=== PATIENT | female | born 1990 | race American Indian/Alaskan Native ===

== ENCOUNTER 2018-08-09 07:28 | Emergency (ER) | payer OTHER, MEDICAID ==
--- NOTE | 2018-08-09 08:00 | Emergency Department Report ---
ED Rash HPI - HPI Chief Complaint: Extremity Problem,Nontraumatic Stated Complaint: R HAND PAIN/SWOLLEN Time Seen by Provider: 08/09/18 07:56 Duration: Today Rash Symptoms: Yes Itching, No Facial Swelling, No Tongue/Oral Swelling, No Choking Sensation, No Wheezing/Dyspnea, No Peeling, No Blistering, No Fever, No Lightheaded, No Malaise, No Myalgias Severity: mild Other History: Mr. Hurd presents with infected skin bite of her right hand. She awaken with itching and swelling at the right thumb region. mild symptoms symptoms. . She is afraid of a spider bite because her mother home has black spiders. ED Review of Systems ROS: Stated complaint: R HAND PAIN/SWOLLEN Other details as noted in HPI Constitutional: denies: fever, malaise Skin: rash, lesions ED Past Medical Hx - Past Medical History Additional medical history: Vaginal delivery 2012 - Social History Smoking Status: Never Smoker Substance Use Type: Alcohol - Medications Home Medications: Home Medications Medication Instructions Recorded Confirmed Last Taken Type metroNIDAZOLE [Flagyl] 500 mg PO BID #14 tablet 10/05/13 Unknown Rx Amoxicillin/K Clav Tab [Augmentin 1 tab PO Q12HR #10 tab 11/27/15 Unknown Rx 875 mg] Fluconazole [Diflucan TAB] 150 mg PO ONCE #2 tablet 11/27/15 Unknown Rx metroNIDAZOLE [Flagyl TAB] 500 mg PO Q12HR #14 tab 11/27/15 Unknown Rx Nitrofurantoin [place]/M-Cryst 100 mg PO Q12HR #14 capsule 02/12/16 Unknown Rx [Macrobid CAP] metroNIDAZOLE [Flagyl] 500 mg PO Q12HR #14 tab 02/12/16 Unknown Rx Sulfamethoxazole/Trimethoprim 1 each PO BID 5 Days #10 tablet 08/09/18 Unknown Rx [Bactrim DS TAB] Rash Exam - Exam General: Vital signs noted. No distress. Alert and acting appropriately. HEENT: No Periorbital Edema, No Conjuctival Injection, No Chemosis, No Perioral Edema, No Tongue Edema, No Uvular Edema, No Compromised Airway, No Drooling Lungs: No Wheezes, No Retractions Skin: No Other (right thenar eminence mild swelling small papule) ED Medical Decision Making - Medical Decision Making mild infected skin bite, swelling encompasses 3 cm of hand: rx: bactrim Critical care attestation.: If time is entered above; I have spent that time in minutes in the direct care of this critically ill patient, excluding procedure time. ED Disposition Clinical Impression: Infected insect bite Disposition: DC-01 TO HOME OR SELFCARE Is pt being admited?: No Does the pt Need Aspirin: No Condition: Stable Instructions: Insect Bite or Sting (ED) Prescriptions: Sulfamethoxazole/Trimethoprim [Bactrim DS TAB] 1 each PO BID 5 Days #10 tablet
== END 2018-08-09 08:11 | disposition home or self-care (01) ==
LOC: ED 07:28
DX: S60.561A Insect bite (nonvenomous) of right hand, initial encounter (principal); L03.113 Cellulitis of right upper limb; W57.XXXA Bitten or stung by nonvenomous insect and other nonvenomous arthropods, initial encounter; Y93.89 Activity, other specified; Y92.89 Other specified places as the place of occurrence of the external cause; Y99.8 Other external cause status
CPT/HCPCS: 99281

== ENCOUNTER 2018-09-08 19:10 | Emergency (ER) | payer OTHER, MEDICAID ==
--- NOTE | 2018-09-08 20:25 | Event Note ---
ED Screening Note Date of service: 09/08/18 Time: 20:22 ED Screening Note: 27 y/o female comes in for right foot pain after a wheelchair ran over time 4 days ago. Ambulating without difficulty. This initial assessment/diagnostic orders/clinical plan/treatment(s) is/are subject to change based on patients health status, clinical progression and re- assessment by fellow clinical providers in the ED. Further treatment and workup at subsequent clinical providers discretion. Patient/guardian urged not to elope from the ED as their condition may be serious if not clinically assessed and managed. Initial orders include:
[2018-09-08 21:47] LABS: HCG Qualitative,Urine Negative (Negative)
--- NOTE | 2018-09-08 23:38 | XRay Report ---
PROCEDURE: XR FOOT 2V RT TECHNIQUE: 2 views of the right foot HISTORY: right foot pain from trauma COMPARISONS: No priors FINDINGS: There is no evidence of acute fracture or dislocation. Alignment is anatomic. No radiopaque foreign bodies. IMPRESSION: No evidence of acute fracture or dislocation of the right foot.. This document is electronically signed by Giovanny Sommer MD., September 08 2018 11:36:37 PM ET
--- NOTE | 2018-09-09 00:35 | Emergency Department Report ---
ED General Adult HPI - General Chief complaint: Dental/Oral Stated complaint: RIGHT FOOT PAIN/TOOTHACHE Time Seen by Provider: 09/09/18 00:27 Source: patient Mode of arrival: Ambulatory Limitations: No Limitations - History of Present Illness Initial comments: pt is a 27 y/o female who comes in for right foot pain after a wheelchair ran over time 4 days ago. dental pain ,chronic Ambulating without difficulty. Onset/Timin -: days(s) Location: left, lower extremity Radiation: non-radiation Severity scale (0 -10): 4 Quality: aching Consistency: constant Improves with: none Worsens with: none Associated Symptoms: denies other symptoms Treatments Prior to Arrival: none - Related Data Previous Rx's Medication Instructions Recorded Last Taken Type metroNIDAZOLE [Flagyl] 500 mg PO BID #14 tablet 10/05/13 Unknown Rx Amoxicillin/K Clav Tab [Augmentin 1 tab PO Q12HR #10 tab 11/27/15 Unknown Rx 875 mg] Fluconazole [Diflucan TAB] 150 mg PO ONCE #2 tablet 11/27/15 Unknown Rx metroNIDAZOLE [Flagyl TAB] 500 mg PO Q12HR #14 tab 11/27/15 Unknown Rx Nitrofurantoin [place]/M-Cryst 100 mg PO Q12HR #14 capsule 02/12/16 Unknown Rx [Macrobid CAP] metroNIDAZOLE [Flagyl] 500 mg PO Q12HR #14 tab 02/12/16 Unknown Rx Sulfamethoxazole/Trimethoprim 1 each PO BID 5 Days #10 tablet 08/09/18 Unknown Rx [Bactrim DS TAB] Amoxicillin [Trimox CAP] 500 mg PO Q8H 10 Days #30 capsule 09/09/18 Unknown Rx Naproxen [Naprosyn] 500 mg PO BID PRN #30 tablet 09/09/18 Unknown Rx Allergies Allergy/AdvReac Type Severity Reaction Status Date / Time No Known Allergies Allergy Verified 08/09/18 07:30 ED Review of Systems ROS: Stated complaint: RIGHT FOOT PAIN/TOOTHACHE Other details as noted in HPI Constitutional: denies: chills, fever Eyes: denies: eye pain, eye discharge, vision change ENT: dental pain, congestion. denies: ear pain, throat pain Respiratory: denies: cough, shortness of breath, wheezing Cardiovascular: denies: chest pain, palpitations Endocrine: no symptoms reported Gastrointestinal: denies: abdominal pain, nausea, diarrhea Genitourinary: denies: urgency, dysuria, discharge Musculoskeletal: other (foot pain ). denies: back pain, joint swelling, arthralgia Skin: denies: rash, lesions Neurological: denies: headache, weakness, paresthesias Psychiatric: denies: anxiety, depression Hematological/Lymphatic: denies: easy bleeding, easy bruising ED Past Medical Hx - Past Medical History Previous Medical History?: Yes Additional medical history: Vaginal delivery 2012, High Cholesterol, Vitamin D defiency - Surgical History Past Surgical History?: Yes Additional Surgical History: C section - Social History Smoking Status: Never Smoker Substance Use Type: None - Medications Home Medications: Home Medications Medication Instructions Recorded Confirmed Last Taken Type metroNIDAZOLE [Flagyl] 500 mg PO BID #14 tablet 10/05/13 Unknown Rx Amoxicillin/K Clav Tab [Augmentin 1 tab PO Q12HR #10 tab 11/27/15 Unknown Rx 875 mg] Fluconazole [Diflucan TAB] 150 mg PO ONCE #2 tablet 11/27/15 Unknown Rx metroNIDAZOLE [Flagyl TAB] 500 mg PO Q12HR #14 tab 11/27/15 Unknown Rx Nitrofurantoin [place]/M-Cryst 100 mg PO Q12HR #14 capsule 02/12/16 Unknown Rx [Macrobid CAP] metroNIDAZOLE [Flagyl] 500 mg PO Q12HR #14 tab 02/12/16 Unknown Rx Sulfamethoxazole/Trimethoprim 1 each PO BID 5 Days #10 tablet 08/09/18 Unknown Rx [Bactrim DS TAB] Amoxicillin [Trimox CAP] 500 mg PO Q8H 10 Days #30 capsule 09/09/18 Unknown Rx Naproxen [Naprosyn] 500 mg PO BID PRN #30 tablet 09/09/18 Unknown Rx ED Physical Exam - General Limitations: No Limitations General appearance: alert, in no apparent distress - Head Head exam: Present: atraumatic, normocephalic - Eye Eye exam: Present: normal appearance, PERRL, EOMI Pupils: Present: normal accommodation - ENT ENT exam: Present: mucous membranes moist - Neck Neck exam: Present: normal inspection, full ROM. Absent: tenderness, lymphadenopathy - Respiratory Respiratory exam: Present: normal lung sounds bilaterally. Absent: respiratory distress, chest wall tenderness - Cardiovascular Cardiovascular Exam: Present: regular rate, normal rhythm. Absent: systolic murmur, diastolic murmur, rubs, gallop - GI/Abdominal GI/Abdominal exam: Present: soft, normal bowel sounds. Absent: distended, tenderness, guarding, rebound, rigid, bruit, hernia - Rectal Rectal exam: Present: deferred - Extremities Exam Extremities exam: Present: normal inspection, tenderness (left lateral foot ), normal capillary refill. Absent: pedal edema, joint swelling, calf tenderness - Expanded Lower Extremity Exam Left Foot/Toe exam: Present: full ROM, tenderness, tenderness at base of 5th metatarsal. Absent: swelling, abrasion, laceration, ecchymosis, deformity, crepidus, dislocation, erythema, amputation, puncture wound, foreign body, ca lcaneal tenderness, nail avulsion, subungual hematoma Neuro vascular tendon exam: Absent: pulse deficit, motor deficit, sensory deficit, tendon deficit Gait: Positive: observed and limited by pain - Back Exam Back exam: Present: normal inspection, tenderness. Absent: CVA tenderness (R), CVA tenderness (L), muscle spasm, paraspinal tenderness, vertebral tenderness, rash noted - Neurological Exam Neurological exam: Present: alert, oriented X3, CN II-XII intact, normal gait, reflexes normal. Absent: motor sensory deficit - Psychiatric Psychiatric exam: Present: normal affect, normal mood - Skin Skin exam: Present: warm, dry, intact, normal color. Absent: rash ED Course Vital Signs 09/08/18 19:38 Temperature 98.8 F Pulse Rate 75 Respiratory 20 Rate Blood Pressure 126/67 O2 Sat by Pulse 100 Oximetry ED Medical Decision Making - Radiology Data Radiology results: report reviewed, image reviewed Ordering Physician: CHEYENNE BUCK Date of Service: 09/08/18 Procedure(s): XR foot 2V RT Accession Number(s): [id number] cc: CHEYENNE BUCK Fluoro Time In Minutes: PROCEDURE: XR FOOT 2V RT TECHNIQUE: 2 views of the right foot HISTORY: right foot pain from trauma COMPARISONS: No priors FINDINGS: There is no evidence of acute fracture or dislocation. Alignment is anatomic. No radiopaque foreign bodies. IMPRESSION: No evidence of acute fracture or dislocation of the right foot.. This document is electronically signed by Giovanny Sommer MD., September 08 2018 11:36:37 PM ET Transcribed By: MARY Dictated By: GIOVANNY SOMMER MD Electronically Authenticated By: GIOVANNY SOMMER MD Signed Date/Time: 09/08/182337 DD/ 30 - Medical Decision Making xray normal no fracture no soft tissue abnormality, no bruising no abnormality, distal pulses intact subjective pain to ambulation, dental pain is chronic to number 28 no focal abscess no gum or facial swelling no throat or ear pain , plan; nsaids, rice therapy follow up with pcp , follow up with dentist, pt given referral to same pt for dc to home in stable condition at this time. Critical care attestation.: If time is entered above; I have spent that time in minutes in the direct care of this critically ill patient, excluding procedure time. ED Disposition Clinical Impression: Toothache Foot sprain Qualifiers: Encounter type: initial encounter Laterality: right Qualified Code(s): S93.601A - Unspecified sprain of right foot, initial encounter Disposition: DC-01 TO HOME OR SELFCARE Is pt being admited?: No Does the pt Need Aspirin: No Condition: Stable Instructions: Dental Caries (ED), Foot Sprain (ED) Prescriptions: Naproxen [Naprosyn] 500 mg PO BID PRN #30 tablet PRN Reason: pain Amoxicillin [Trimox CAP] 500 mg PO Q8H 10 Days #30 capsule Referrals: [facility] [Outside] - 3-5 Days Forms: Work/School Release Form(ED) Time of Disposition: 00:44
[2018-09-09 01:20] VITALS: BP 129/83
== END 2018-09-09 01:21 | disposition home or self-care (01) ==
LOC: ED 19:10
DX: S93.601A Unspecified sprain of right foot, initial encounter (principal); K08.89 Other specified disorders of teeth and supporting structures; E78.00 Pure hypercholesterolemia, unspecified; Z79.899 Other long term (current) drug therapy; W05.0XXA Fall from non-moving wheelchair, initial encounter; Y93.89 Activity, other specified; Y92.89 Other specified places as the place of occurrence of the external cause; Y99.8 Other external cause status
CPT/HCPCS: 81025; 99284

== ENCOUNTER 2018-10-07 12:06 | Emergency (ER) | payer OTHER, MEDICAID ==
--- NOTE | 2018-10-07 12:17 | Emergency Department Report ---
Blank Doc - Documentation Documentation: This is a 27-year-old female that presents with n/v/d and abdominal pain. This initial assessment/diagnostic orders/clinical plan/treatment(s) is/are subject to change based on patient's health status, clinical progression and re- assessment by fellow clinical providers in the ED. Further treatment and workup at subsequent clinical providers discretion. Patient/guardians urged not to elope from the ED as their condition may be serious if not clinically assessed and managed. Initial orders include: 1- Patient sent to [facility] for further evaluation and treatment 2- labs 3- UA
[2018-10-07 12:21] VITALS: BP 125/67
--- NOTE | 2018-10-07 12:46 | Emergency Department Report ---
ED Abdominal Pain HPI - General Chief Complaint: Nausea/Vomiting/Diarrhea Stated Complaint: STOMACH/L FINGER PAIN/VOMITING Time Seen by Provider: 10/07/18 12:16 Source: patient Mode of arrival: Ambulatory Limitations: No Limitations - History of Present Illness Initial Comments: Ms. Hurd is a 27-year-old female presents with right lower quadrant pain nausea vomiting diarrhea for the last 4 days. Recently was evaluated at outside emergency department at another hospital. She was prescribed naproxen and amoxicillin for tooth infection. Mild sharp pain. Intermittent in the right lower quadrant. Last menstrual period September 15. MD Complaint: abdominal pain -: Gradual, days(s) (4) Location: RLQ Severity: mild Quality: cramping Consistency: intermittent Improves With: nothing Worsens With: nothing Associated Symptoms: nausea, vomiting, diarrhea - Related Data Previous Rx's Medication Instructions Recorded Last Taken Type metroNIDAZOLE [Flagyl] 500 mg PO BID #14 tablet 10/05/13 Unknown Rx Amoxicillin/K Clav Tab [Augmentin 1 tab PO Q12HR #10 tab 11/27/15 Unknown Rx 875 mg] Fluconazole [Diflucan TAB] 150 mg PO ONCE #2 tablet 11/27/15 Unknown Rx metroNIDAZOLE [Flagyl TAB] 500 mg PO Q12HR #14 tab 11/27/15 Unknown Rx Nitrofurantoin [place]/M-Cryst 100 mg PO Q12HR #14 capsule 02/12/16 Unknown Rx [Macrobid CAP] metroNIDAZOLE [Flagyl] 500 mg PO Q12HR #14 tab 02/12/16 Unknown Rx Sulfamethoxazole/Trimethoprim 1 each PO BID 5 Days #10 tablet 08/09/18 Unknown Rx [Bactrim DS TAB] Amoxicillin [Trimox CAP] 500 mg PO Q8H 10 Days #30 capsule 09/09/18 Unknown Rx Naproxen [Naprosyn] 500 mg PO BID PRN #30 tablet 09/09/18 Unknown Rx Allergies Allergy/AdvReac Type Severity Reaction Status Date / Time No Known Allergies Allergy Verified 10/07/18 12:08 ED Review of Systems ROS: Stated complaint: STOMACH/L FINGER PAIN/VOMITING Other details as noted in HPI Comment: All other systems reviewed and negative Constitutional: denies: fever, malaise Gastrointestinal: abdominal pain, nausea, vomiting, diarrhea Genitourinary: denies: frequency, hematuria, discharge, abnormal menses, dyspareunia ED Past Medical Hx - Past Medical History Previous Medical History?: Yes Additional medical history: Vaginal delivery 2012, High Cholesterol, Vitamin D defiency - Surgical History Past Surgical History?: Yes Additional Surgical History: C section - Social History Smoking Status: Never Smoker Substance Use Type: Alcohol - Medications Home Medications: Home Medications Medication Instructions Recorded Confirmed Last Taken Type metroNIDAZOLE [Flagyl] 500 mg PO BID #14 tablet 10/05/13 Unknown Rx Amoxicillin/K Clav Tab [Augmentin 1 tab PO Q12HR #10 tab 11/27/15 Unknown Rx 875 mg] Fluconazole [Diflucan TAB] 150 mg PO ONCE #2 tablet 11/27/15 Unknown Rx metroNIDAZOLE [Flagyl TAB] 500 mg PO Q12HR #14 tab 11/27/15 Unknown Rx Nitrofurantoin [place]/M-Cryst 100 mg PO Q12HR #14 capsule 02/12/16 Unknown Rx [Macrobid CAP] metroNIDAZOLE [Flagyl] 500 mg PO Q12HR #14 tab 02/12/16 Unknown Rx Sulfamethoxazole/Trimethoprim 1 each PO BID 5 Days #10 tablet 08/09/18 Unknown Rx [Bactrim DS TAB] Amoxicillin [Trimox CAP] 500 mg PO Q8H 10 Days #30 capsule 09/09/18 Unknown Rx Naproxen [Naprosyn] 500 mg PO BID PRN #30 tablet 09/09/18 Unknown Rx ED Physical Exam - General Limitations: No Limitations General appearance: alert, in no apparent distress - Head Head exam: Present: atraumatic, normocephalic - Eye Eye exam: Present: normal appearance - ENT ENT exam: Present: mucous membranes moist - Neck Neck exam: Present: normal inspection, full ROM - Respiratory Respiratory exam: Present: normal lung sounds bilaterally. Absent: respiratory distress, wheezes, rales - Cardiovascular Cardiovascular Exam: Present: regular rate, normal rhythm, normal heart sounds. Absent: systolic murmur, diastolic murmur, rubs, gallop - GI/Abdominal GI/Abdominal exam: Present: soft, normal bowel sounds. Absent: distended, tenderness, guarding, rebound - Extremities Exam Extremities exam: Present: normal inspection - Back Exam Back exam: Present: normal inspection - Neurological Exam Neurological exam: Present: alert, oriented X3 - Psychiatric Psychiatric exam: Present: normal affect, normal mood - Skin Skin exam: Present: warm, dry, intact, normal color. Absent: rash ED Course Vital Signs 10/07/18 12:16 Temperature 98.4 F Pulse Rate 77 Respiratory 18 Rate Blood Pressure 125/67 O2 Sat by Pulse 100 Oximetry ED Medical Decision Making - Medical Decision Making Ms. Hurd is a [id number] female who presents with nausea vomiting diarrhea right lower quadrant pain. I suspect that amoxicillin is causing the diarrhea. No signs of peritonitis. No tenderness upon palpation. Normal vital signs. I do not suspect appendicitis or ovarian torsion or ectopic . She was given return precautions. She understands return to the emergency department if pain becomes worse or if she develops new symptoms. At this time she appears quite well comfortable in no distress. Critical care attestation.: If time is entered above; I have spent that time in minutes in the direct care of this critically ill patient, excluding procedure time. ED Disposition Clinical Impression: Abdominal pain, Nausea vomiting and diarrhea Disposition: DC-01 TO HOME OR SELFCARE Is pt being admited?: No Does the pt Need Aspirin: No Condition: Stable Instructions: Abdominal Pain (ED) Forms: Work/School Release Form(ED)
== END 2018-10-07 12:54 | disposition home or self-care (01) ==
LOC: ED 12:06
DX: R10.31 Right lower quadrant pain (principal); R11.2 Nausea with vomiting, unspecified; R19.7 Diarrhea, unspecified; E78.00 Pure hypercholesterolemia, unspecified; Z98.890 Other specified postprocedural states; Z79.899 Other long term (current) drug therapy
CPT/HCPCS: 99282

== ENCOUNTER 2018-10-28 19:58 | Emergency (ER) | payer OTHER, MEDICAID ==
[2018-10-28 20:55] VITALS: BP 121/75
--- NOTE | 2018-10-28 21:01 | Event Note ---
ED Screening Note Date of service: 10/28/18 Time: 20:59 ED Screening Note: 27 y/o female comes in for vaginal discharge and herpes outbreak. This initial assessment/diagnostic orders/clinical plan/treatment(s) is/are subject to change based on patients health status, clinical progression and re- assessment by fellow clinical providers in the ED. Further treatment and workup at subsequent clinical providers discretion. Patient/guardian urged not to elope from the ED as their condition may be serious if not clinically assessed and managed. Initial orders include:
[2018-10-28 22:13] LABS: Bilirubin,Urine NEG (Negative); Blood,Urine SM (Negative); Color,Urine Yellow (Yellow); Protein,Urine <15 mg/dL mg/dL (Negative); Urobilinogen,Urine < 2.0 mg/dL (<2.0)
--- NOTE | 2018-10-28 23:35 | Emergency Department Report ---
<BRYANT RICARDO - Last Filed: 10/28/18 23:44> ED Female HPI - General Chief complaint: Urogenital-Female Stated complaint: VAGINAL PAIN Time Seen by Provider: 10/28/18 20:58 Source: patient Mode of arrival: Ambulatory Limitations: No Limitations - History of Present Illness Initial comments: pt reports for HSV out break lesions stinging burning this is usual outbreak for this patient there is urinary frequency and urgency pt states not sexually active. MD Complaint: dysuria Onset/Timin -: days(s) Location: labia, perineum Radiation: non-radiating Severity: moderate Quality: burning Consistency: constant Improves with: none Worsens with: none Are you Now?: No Last Menstrual Period: 10/21/18 EDC: 07/28/19 Associated Symptoms: dysuria, rash - Related Data Sexually active: No Previous Rx's Medication Instructions Recorded Last Taken Type metroNIDAZOLE [Flagyl] 500 mg PO BID #14 tablet 10/05/13 Unknown Rx Amoxicillin/K Clav Tab [Augmentin 1 tab PO Q12HR #10 tab 11/27/15 Unknown Rx 875 mg] Fluconazole [Diflucan TAB] 150 mg PO ONCE #2 tablet 11/27/15 Unknown Rx metroNIDAZOLE [Flagyl TAB] 500 mg PO Q12HR #14 tab 11/27/15 Unknown Rx Nitrofurantoin [place]/M-Cryst 100 mg PO Q12HR #14 capsule 02/12/16 Unknown Rx [Macrobid CAP] metroNIDAZOLE [Flagyl] 500 mg PO Q12HR #14 tab 02/12/16 Unknown Rx Sulfamethoxazole/Trimethoprim 1 each PO BID 5 Days #10 tablet 08/09/18 Unknown Rx [Bactrim DS TAB] Amoxicillin [Trimox CAP] 500 mg PO Q8H 10 Days #30 capsule 09/09/18 Unknown Rx Naproxen [Naprosyn] 500 mg PO BID PRN #30 tablet 09/09/18 Unknown Rx Fluconazole [Diflucan TAB] 150 mg PO ONCE #1 tablet 10/28/18 Unknown Rx Nitrofurantoin [place]/M-Cryst 100 mg PO Q12HR 7 Days #14 capsule 10/28/18 Unknown Rx [Macrobid CAP] Valacyclovir HCl [Valtrex] 1,000 mg PO BID 10 Days #20 tablet 10/28/18 Unknown Rx Allergies Allergy/AdvReac Type Severity Reaction Status Date / Time No Known Allergies Allergy Verified 10/07/18 12:08 ED Review of Systems Constitutional: denies: chills, fever Eyes: denies: eye pain, eye discharge, vision change ENT: denies: ear pain, throat pain Respiratory: denies: cough, shortness of breath, wheezing Cardiovascular: denies: chest pain, palpitations Endocrine: no symptoms reported Gastrointestinal: denies: abdominal pain, nausea, diarrhea Genitourinary: urgency, dysuria, frequency. denies: hematuria, discharge, abnormal menses Musculoskeletal: denies: back pain, joint swelling, arthralgia Skin: rash (genital ). denies: lesions Neurological: denies: headache, weakness, paresthesias Psychiatric: denies: anxiety, depression Hematological/Lymphatic: denies: easy bleeding, easy bruising ED Past Medical Hx - Past Medical History Additional medical history: Vaginal delivery 2012, High Cholesterol, Vitamin D defiency - Surgical History Additional Surgical History: C section - Social History Smoking Status: Unknown if ever smoked Substance Use Type: None - Medications Home Medications: Home Medications Medication Instructions Recorded Confirmed Last Taken Type metroNIDAZOLE [Flagyl] 500 mg PO BID #14 tablet 10/05/13 Unknown Rx Amoxicillin/K Clav Tab [Augmentin 1 tab PO Q12HR #10 tab 11/27/15 Unknown Rx 875 mg] Fluconazole [Diflucan TAB] 150 mg PO ONCE #2 tablet 11/27/15 Unknown Rx metroNIDAZOLE [Flagyl TAB] 500 mg PO Q12HR #14 tab 11/27/15 Unknown Rx Nitrofurantoin [place]/M-Cryst 100 mg PO Q12HR #14 capsule 02/12/16 Unknown Rx [Macrobid CAP] metroNIDAZOLE [Flagyl] 500 mg PO Q12HR #14 tab 02/12/16 Unknown Rx Sulfamethoxazole/Trimethoprim 1 each PO BID 5 Days #10 tablet 08/09/18 Unknown Rx [Bactrim DS TAB] Amoxicillin [Trimox CAP] 500 mg PO Q8H 10 Days #30 capsule 09/09/18 Unknown Rx Naproxen [Naprosyn] 500 mg PO BID PRN #30 tablet 09/09/18 Unknown Rx Fluconazole [Diflucan TAB] 150 mg PO ONCE #1 tablet 10/28/18 Unknown Rx Nitrofurantoin [place]/M-Cryst 100 mg PO Q12HR 7 Days #14 capsule 10/28/18 Unknown Rx [Macrobid CAP] Valacyclovir HCl [Valtrex] 1,000 mg PO BID 10 Days #20 tablet 10/28/18 Unknown Rx ED Physical Exam - General Limitations: No Limitations General appearance: alert, in no apparent distress - Head Head exam: Present: atraumatic, normocephalic - Eye Eye exam: Present: normal appearance, PERRL, EOMI Pupils: Present: normal accommodation - ENT ENT exam: Present: mucous membranes moist - Neck Neck exam: Present: normal inspection, full ROM, lymphadenopathy - Respiratory Respiratory exam: Present: normal lung sounds bilaterally. Absent: respiratory distress, wheezes, stridor, prolonged expiratory - Cardiovascular Cardiovascular Exam: Present: regular rate, normal rhythm, normal heart sounds. Absent: systolic murmur, diastolic murmur, rubs, gallop - GI/Abdominal GI/Abdominal exam: Present: soft, normal bowel sounds. Absent: distended, tenderness, guarding, rebound, rigid, bruit, hernia - Rectal Rectal exam: Present: deferred - External exam: Present: other (exam deferred by patient ) - Extremities Exam Extremities exam: Present: normal inspection, full ROM, normal capillary refill - Back Exam Back exam: Present: normal inspection, full ROM, tenderness, muscle spasm, paraspinal tenderness. Absent: CVA tenderness (R), CVA tenderness (L), vertebral tenderness, rash noted - Neurological Exam Neurological exam: Present: alert, oriented X3, CN II-XII intact, normal gait, reflexes normal. Absent: motor sensory deficit - Psychiatric Psychiatric exam: Present: normal affect, normal mood - Skin Skin exam: Present: warm, dry, intact, normal color. Absent: rash ED Medical Decision Making - Lab Data this is a HSV outbreak. will tx for same - Medical Decision Making this is a HSV outbreak will refill valtrax, pt will followup with pcp in 2-3 days pt dc'd to home in stable condition at this time. ED Disposition Clinical Impression: Genital HSV Qualifiers: Herpes simplex infection site: vulvovaginitis Qualified Code(s): A60.04 - Herpesviral vulvovaginitis Disposition: DC-01 TO HOME OR SELFCARE Is pt being admited?: No Does the pt Need Aspirin: No Condition: Stable Instructions: Genital Herpes Simplex (ED) Prescriptions: Fluconazole [Diflucan TAB] 150 mg PO ONCE #1 tablet Nitrofurantoin [place]/M-Cryst [Macrobid CAP] 100 mg PO Q12HR 7 Days #14 capsule Valacyclovir HCl [Valtrex] 1,000 mg PO BID 10 Days #20 tablet Referrals: RAMIRO WEEKS MD [Primary Care Provider] - 3-5 Days Forms: Work/School Release Form(ED) Time of Disposition: 23:45 <MARIANGEL WEBB - Last Filed: 10/29/18 01:20> ED Review of Systems ROS: Stated complaint: VAGINAL PAIN Other details as noted in HPI ED Course Vital Signs 10/28/18 20:53 Temperature 98.1 F Pulse Rate 70 Respiratory 18 Rate Blood Pressure 121/75 O2 Sat by Pulse 99 Oximetry Critical care attestation.: If time is entered above; I have spent that time in minutes in the direct care of this critically ill patient, excluding procedure time. ED Disposition Is pt being admited?: No Does the pt Need Aspirin: No
== END 2018-10-28 23:41 | disposition home or self-care (01) ==
LOC: ED 19:58
DX: A60.00 Herpesviral infection of urogenital system, unspecified (principal); E78.00 Pure hypercholesterolemia, unspecified; Z98.890 Other specified postprocedural states; Z79.899 Other long term (current) drug therapy
CPT/HCPCS: 81001

== ENCOUNTER 2019-06-10 11:15 | Emergency (ER) | payer MEDICAID, OTHER ==
[2019-06-10 11:27] VITALS: BP 91/71
--- NOTE | 2019-06-10 11:33 | Emergency Department Report ---
Chief Complaint: Dyspnea/Respdistress Stated Complaint: THROAT PAIN Time Seen by Provider: 06/10/19 11:32 - HPI History of Present Illness: here with sore throat for weeks abc intact vss no fever or chills - ROS Review of Systems: sore throat only - Exam Vital Signs: Vital Signs 06/10/19 11:25 Temperature 98.8 F Pulse Rate 81 Respiratory 20 Rate Blood Pressure 91/71 O2 Sat by Pulse 99 Oximetry Physical Exam: abc intact no exudates lungs cta abd snt MSE screening note: Focused history and physical exam performed. Due to findings the following was ordered: no life treat- MSE to home with PCP follow up ED Disposition for MSE Disposition: MED SCREENING EXAM-LEFT Condition: Stable Referrals: PRIMARY CARE, [Primary Care Provider] - 3-5 Days
== END 2019-06-10 11:55 | disposition left against medical advice (07) ==
LOC: ED 11:15
DX: J02.9 Acute pharyngitis, unspecified (principal); Z53.21 Procedure and treatment not carried out due to patient leaving prior to being seen by health care provider

== ENCOUNTER 2021-01-24 16:10 | Outpatient (CLI) | payer OTHER ==
[2021-01-24 17:21] LABS: Bacteria,Urine 1+ /HPF (Negative); Bilirubin,Urine NEG (Negative); Blood,Urine NEG (Negative); Color,Urine Yellow (Yellow); Mucus,Urine FEW /HPF; Protein,Urine <15 mg/dL mg/dL (Negative); Urobilinogen,Urine < 2.0 mg/dL (<2.0)
[2021-01-24 17:26] VITALS: BP 110/63
[2021-01-24] MEDS ORDERED: LACTATED RINGERS 1,000 ML IV ONE (17:30)
== END 2021-01-24 19:35 | disposition home or self-care (01) ==
LOC: TRG 16:10 → APU 16:22 → TRG 19:35
PROVIDERS: ATTEND Obstetrics & Gynecology
DX: Z34.93 Encounter for supervision of normal pregnancy, unspecified, third trimester (principal); Z3A.31 31 weeks gestation of pregnancy
CPT/HCPCS: 36415; 81001; 82731

== ENCOUNTER 2021-03-19 10:17 | Emergency (ER) | payer MEDICAID ==
--- NOTE | 2021-03-19 10:23 | Emergency Department Report ---
ED ENT HPI - General Chief complaint: Upper Respiratory Infection Stated complaint: COLD SYMPTOMS Time Seen by Provider: 03/19/21 10:22 Source: patient Mode of arrival: Ambulatory Limitations: No Limitations - History of Present Illness Initial comments: 30-year-old female who is currently 39 weeks presents to the ER today with complaints of throat irritation. She states that symptoms started yesterday. She states that it feels uncomfortable, irritated and itchy. She denies any pain with swallowing. She denies any swelling to her throat. She states that she does have some nasal congestion but otherwise no other URI symptoms. She denies any cough, fever or chills. She denies any abdominal pain or symptoms. She did take a COVID-19 test on March 14 and it was negative. She has not gotten a COVID-19 vaccine. complaint: sore throat - Related Data Previous Rx's Medication Instructions Recorded Last Taken Type Cetirizine HCl [Zyrtec 10mg tab] 10 mg PO DAILY #30 03/19/21 Unknown Rx Allergies Allergy/AdvReac Type Severity Reaction Status Date / Time No Known Allergies Allergy Verified 10/07/18 12:08 ED Dental HPI - General Chief complaint: Upper Respiratory Infection Stated complaint: COLD SYMPTOMS Time Seen by Provider: 03/19/21 10:22 Source: patient Mode of arrival: Ambulatory Limitations: No Limitations - Related Data Previous Rx's Medication Instructions Recorded Last Taken Type Cetirizine HCl [Zyrtec 10mg tab] 10 mg PO DAILY #30 03/19/21 Unknown Rx Allergies Allergy/AdvReac Type Severity Reaction Status Date / Time No Known Allergies Allergy Verified 10/07/18 12:08 ED Review of Systems ROS: Stated complaint: COLD SYMPTOMS Other details as noted in HPI Comment: All other systems reviewed and negative Constitutional: denies: chills, fever ENT: throat pain, congestion Respiratory: denies: cough, orthopnea, shortness of breath, SOB with exertion, SOB at rest, stridor, wheezing Cardiovascular: denies: chest pain, palpitations, dyspnea on exertion, edema, syncope, paroxysmal nocturnal dyspnea Endocrine: no symptoms reported Gastrointestinal: denies: abdominal pain, nausea, diarrhea, constipation, hematemesis Genitourinary: denies: urgency, dysuria, frequency, hematuria, discharge, abnormal menses, dyspareunia Skin: denies: change in color, change in hair/nails, pruritus Neurological: denies: headache, weakness, numbness, paresthesias, confusion, abnormal gait, vertigo Psychiatric: denies: anxiety, depression, auditory hallucinations, visual hallucinations, homicidal thoughts Hematological/Lymphatic: denies: easy bleeding, easy bruising, swollen glands ED Past Medical Hx - Past Medical History Hx Hypertension: No Hx Diabetes: No Hx Deep Vein Thrombosis: No Hx Renal Disease: No Hx Sickle Cell Disease: No Hx Seizures: No Hx Asthma: No Hx HIV: No Additional medical history: Vaginal delivery 2012, High Cholesterol, Vitamin D defiency - Surgical History Additional Surgical History: C section - Social History Smoking Status: Never Smoker - Medications Home Medications: Home Medications Medication Instructions Recorded Confirmed Last Taken Type Cetirizine HCl [Zyrtec 10mg tab] 10 mg PO DAILY #30 03/19/21 Unknown Rx ED Physical Exam - General Limitations: No Limitations General appearance: alert, in no apparent distress - Head Head exam: Present: atraumatic, normocephalic, normal inspection - Eye Eye exam: Present: normal appearance, PERRL, EOMI Pupils: Present: normal accommodation - ENT ENT exam: Present: normal exam - Expanded ENT Exam Expanded Mouth exam: Present: normal external inspection Teeth exam: Present: normal inspection Throat exam: Positive: tonsillar erythema. Negative: tonsillomegaly, tonsillar exudate, R peritonsillar mass, L peritonsillar mass - Neck Neck exam: Present: normal inspection, full ROM, lymphadenopathy (mild anterior cervical ). Absent: meningismus - Respiratory Respiratory exam: Present: normal lung sounds bilaterally. Absent: respiratory distress, wheezes, rales, rhonchi - Cardiovascular Cardiovascular Exam: Present: regular rate, normal rhythm, normal heart sounds - GI/Abdominal GI/Abdominal exam: Present: soft. Absent: distended, tenderness, guarding, rebound - Neurological Exam Neurological exam: Present: alert, oriented X3, CN II-XII intact, normal gait - Psychiatric Psychiatric exam: Present: normal affect, normal mood - Skin Skin exam: Present: intact ED Course Vital Signs 03/19/21 10:25 Temperature 98 F Pulse Rate 68 Respiratory 22 Rate Blood Pressure 122/66 [Right] O2 Sat by Pulse 98 Oximetry ED Medical Decision Making - Medical Decision Making 1146; Rapid strep is negative. The patient is rest comfortably, is alert and in no distress. The patient has normal mental status and is neurologically intact. The patient appears well and i and there is no significant dehydration. There is no respiratory distress and no signs of systemic toxicity. She has no related symptoms. She is controlling her secretions well. She has no trismus or drooling. No stridor on exam. The history, exam, diagnostic testing and current condition do not demonstrate an infectious process such as meningitis, severe pneumonia, retropharyngeal abscess, epiglottitis, sepsis or other serious bacterial infection requiring further testing, treatment, consultation or admission at this time. Suspect that his symptoms likely related to either allergies or viral URI. I did recommend that she get another COVID-19 test since the last time she got one was about 5 days ago and she was not symptomatic at the time. Also she is scheduled to be induced either today or sometime next week. She was given a prescription for Zyrtec. Recommend she follows up with her PCP and [facility]. The vital signs have been stable. The patient's condition is stable and appropriate for discharge. The patient will pursue further outpatient evaluation with the primary care physician or other designated. Critical care attestation.: If time is entered above; I have spent that time in minutes in the direct care of this critically ill patient, excluding procedure time. ED Disposition Clinical Impression: URI (upper respiratory infection) Disposition: 01 HOME / SELF CARE / HOMELESS Is pt being admited?: No Does the pt Need Aspirin: No Condition: Stable Instructions: Upper Respiratory Infection, Adult, [id number] Additional Instructions: You may want to consider getting a repeat Covid test since she started with symptoms 2 days ago, and before you going for your induction next week. In the meantime you can take the Zyrtec to help with your symptoms. Follow-up with your PCP and your [facility]. Return to the ER if your symptoms changes or worsens in any way. Prescriptions: Cetirizine HCl [Zyrtec 10mg tab] 10 mg PO DAILY #30 Referrals: PRIMARY CARE, [Primary Care Provider] - 3-5 Days Time of Disposition: 11:26
[2021-03-19 12:02] VITALS: BP 112/58
== END 2021-03-19 12:02 | disposition home or self-care (01) ==
LOC: ED 10:17
DX: J06.9 Acute upper respiratory infection, unspecified (principal); Z79.899 Other long term (current) drug therapy
CPT/HCPCS: 87116; 87430; 99283